=== PATIENT | male | born 1965 | race Caucasian/White ===

== ENCOUNTER → 2019-01-15 09:53 | Outpatient (CLI) | payer OTHER, SELFPAY ==
[2019-01-15 09:31] VITALS: BMI 30.8
[2019-01-15 12:34] LABS: ALB/GLOB Ratio 1.2 RATIO (0.9-2.4); AST(SGOT) 15 U/L (15-37); Alanine Aminotransfer ALT/SGPT 43 U/L (16-61); Albumin, Serum 3.5 g/dL (3.2-5.0); Alkaline Phosphatase 105 U/L (45-117); Anion Gap 5 (5-15); BUN 11 mg/dL (7-18); BUN/Creat Ratio 10.5 RATIO (10-20); Calcium,Total 8.7 mg/dL (8.5-10.1); Chloride 109 mmol/L (98-107); Cholesterol 136 mg/dL (200); Creatinine, Serum 1.05 mg/dL (0.70-1.30); EST Glomerular Filtration Rate 79 mL/min (>60); Est Glom Filt Rate - Afr Amer 96 mL/min (>60); Glucose 97 mg/dL (74-106); High Density Lipoprotein 40 mg/dL; Potassium 3.7 mmol/L (3.5-5.1); Protein, Total 6.5 g/dL (6.4-8.2); Sodium Level 142 mmol/L (136-145); Triglycerides 210 mg/dL; Very Low Density Lipoprotein 42 mg/dL (5-40)
== END ==
PROVIDERS: Family Provider Family Medicine; PCP Family Medicine; Visit Provider Family Medicine
DX: E78.5 Hyperlipidemia, unspecified (principal)
CPT/HCPCS: 36415; 80053; 80061

== ENCOUNTER 2019-06-24 07:29 | Day surgery (SDC) | payer OTHER, SELFPAY ==
[2019-01-15 09:31] VITALS: BMI 30.8
[2019-06-24] VITALS (7 sets, daily range): BP systolic 125–131; BP diastolic 74–91; PULSE 44–57; RESP 15–45; TEMP 36.2; O2SAT 94–99; BMI 30.1
[2019-06-24] MEDS: Lactated Ringers 1,000 ML 100 ML IV (08:00)
--- NOTE | 2019-06-24 08:26 | HP.PCM_ITS ---
History of Present Illness Date of Admission: 06/24/19 The patient is a 53 year old M who presents for screening colonoscopy. Patient denies any abdominal pain or blood in his stool. He has never had a colonoscopy. He denies any family history of colon cancer. Past Medical/Surgical History - Planned Operation Planned Operative Procedure/s: cscope open access Date of Operative Procedure: 05/06/19 Permit Signed: No S.O.S: No Is This Patient Having a Total Joint: No - Previous Hospitalizations/Surgeries HX Hospitalizations: No HX of Surgeries: knee scope right. shoulder rtc right. septoplasty. wisdom teeth Any Problems With Anesthesia: No You/Your Family Experience Fever (Hyperthermia) With Anes: No Cholinesterase deficiency: No - Cardiovascular Hx Chest Pain within Last 2 months: No Hx of Irregular Heartbeat and/or Afib: No Hx Heart Attack: No Hx Congestive Heart Failure: No Hx Rheumatic Fever: No Hx Hypertension: No - . Hx Internal Defibrillator: No Hx Pacemaker: No Hx Cardiac Catheterization: No Hx Cardiac Surgery/Stents/Etc.: No Hx Stress Test: No HX Edema: No Hx Pain in Legs when Walking/Leg Cramps: No - Respiratory Chronic Cough: No HX of Shortness of Breath: No Hoarseness: No Hx Chronic Obstructive Pulmonary Disease (COPD): No Hx Asthma: No Hx Emphysema: No Hx Sleep Apnea: No Hx Oxygen Use at Home: No Hx Respiratory Tract Infection/Cold (presently): No Do You Snore Loudly (louder than talking or can be heard): Yes Do You Often Feel Tired/ Fatigued/ Sleepy Dring Daytime?: No Has Anyone Observed You Stop Breathing During Sleep?: No Result (for STOP score): Negative Hx Smoking: No Smoking Status: Never smoker - Gastrointestinal Hx Gastroesophageal Reflux: No Hx Gastrointestinal Disorders: No Hx Gastrointestinal Bleed: No Hx Ulcer: No Hx Hiatal Hernia: No Difficulty Chewing/Swallowing: Yes - narrow esphogus/had swallowing test Recent Onset of Swallowing Problems: No Special diet followed at home: No Hx Unplanned Weight Loss of 20#: No HX Unplanned Weight Gain of 20#: No - Neurological Hx Seizures: No HX Syncope/Blackout Spells/Unconsciousness: No Hx CVA/Stroke: No Hx Transient Ischemic Attacks (TIA): No Hx Multiple Sclerosis: No Hx Parkinson's Disease: No Hx Head/Neck Injury: No Hx Headaches: Yes - migraines Hx Back Injury/Pain: No Recent Onset of Speech Difficulty: No Restless Legs: No Does patient have nerve stimulator: No Patient instructed to have device shut off: No Rep notified?: No - Blood Disorder Hx Leukemia: No Bleeding Tendencies: No Hx Deep Vein Thrombosis: Yes - dvt after shoulder surgery Hx High Cholesterol: Yes - on med Blood Transmitted Disease: No Hx Hepatitis: No Hx Cirrhosis: No Hx Anemia: No Hx Blood Disorders: No - Genitourinary Hx Renal Disease: No - kidney stone in the past - Musculoskeletal Hx Arthritis: No Hx Rheumatoid Arthritis: No Hx Gout: No Recent Onset of an Orthopedic Problem: No - Endocrine Hx Diabetes: No Thyroid Disease: No Hx Steroid Therapy: No - Psycho/Social Hx Substance Use: No Hx Alcohol Use: No Hx Anxiety: No Hx Depression: No Mental Illness: No Hx Dementia: No - Miscellaneous Hx Cancer: No Recent Exposure to Contagious Disease: No Active MRSA: No Hx of C-Diff: No Any Loose Teeth: No Allergies No Known Allergies Allergy (Unverified 06/24/19 07:51) - Discharge Is Pt Admitted From a [facility]pc, or a Senior Care: No Who Could Help: family After D/C, Where Do you Plan to Go: Return Home - Physical Exam Vitals/I&O's: Vital Signs Temp Pulse Resp BP Pulse Ox 97.1 F L 54 L 15 131/74 H 99 06/24/19 07:52 06/24/19 07:52 06/24/19 07:52 06/24/19 07:52 06/24/19 07:52 Oxygen Delivery Method Room Air Weight: 234 lb 9.149 oz Body Mass Index (BMI) 30.1 General: Alert, Oriented x3 Neck: No JVD Lungs: Normal air movement Cardiovascular: Regular rate, Regular Rhythm Abdomen: Soft, Non Tender, Non-Distended Current Medications Lactated Ringer's () 1,000 mls @ 100 mls/hr IV .Q10H VICTOR MANUEL Last Admin: 06/24/19 08:00 Dose: 100 mls/hr Documented by: Assessment/Plan All Active Problems (Last Reviewed 01/15/19 @ 09:39 by Juan Porter DO) Calculus of distal left ureter (Resolved) 53-year-old male for screening colon cancer 1. I explained endoscopy in detail to the patient. I explained the risks including but not limited to stroke or heart attack with anesthesia, perforation of the GI tract, bleeding, infection. I explained that any of these could necessitate further emergency surgery. The patient understands and all questions were answered sufficiently. The patient wishes to proceed with procedure. Isidro Martin MD Pager: [facility] [address] [place] [address] [address] [place] [address] Office: Surgery Risks - Colonoscopy Risks Include but are not Limited To: Risks include but are not limited to: Bleeding, perforation requiring further surgery, inability to complete colonoscopy requiring barium enema.
--- NOTE | 2019-06-24 08:30 | COLBX_PTH ---
PATIENT: ELADIO ARCHIBALD LOC: EN U#:[id number] AGE/SX: 53/M ROOM: RE06/24/[address]: Dr. Isidro Martin MD : 1965 BED: DIS: 06/24/2019 SPEC #: [id number] RECD: 06/24/19 13:46 STATUS: CHAGO JUVENCIO #: [id number] GERRY: 06/24/19 08:[address]: Isidro Martin DEPT: SURGICAL PATHOLOGY RECD BY: Grant Schmidt ENTERED: 06/24/19 14:16 SP TYPE: COLON BX OTHR DR: Dr. Juan Porter, Tissues: COLON BIOPSY Procedures: Surgery Specimen Level IV HEADER OPERATION: Colonoscopy - open access (MAC) PRE-OP DIAGNOSIS: Screening colonoscopy TISSUE SUBMITTED: Hepatic flexure polyps MICROSCOPIC DIAGNOSIS Hepatic flexure polyps, biopsy: Fragments of tubular adenoma. Hyperplastic polyp. SJ:mando 06/25/19 MICROSCOPIC DESCRIPTION Slides are reviewed. GROSS DESCRIPTION Received in fixative is one container labeled with the patient's name and designated hepatic flexure polyp. The specimen consists of multiple irregular fragments of rm soft tissue that in aggregate measure 2 x 1.2 x 0.3 cm. The entire specimen is submitted in one cassette. / SJ:rg 06/24/19 TC:1 CPT: 88038
--- NOTE | 2019-06-24 08:53 | OP.COLON_ITS ---
Patient Name: Elia Ochoa Procedure Date: 06/24/2019 8:29 AM Date of : 1965 Age: 53 Procedure: Colonoscopy Indications: Screening for colorectal malignant neoplasm Providers: Isidro Martin MD Referring MD: Juan Porter Medicines: Monitored Anesthesia Care Patient Profile: This is a 53 year old male. Refer to note in patient chart for documentation of history and physical. Last Colonoscopy: none. The patient's first colonoscopy is today. Complications: No immediate complications. Estimated blood loss: Minimal. Procedure: Pre-Anesthesia Assessment: - Prior to the procedure, a History and Physical was performed, and patient medications and allergies were reviewed. The patient's tolerance of previous anesthesia was also reviewed. The risks and benefits of the procedure and the sedation options and risks were discussed with the patient. All questions were answered, and informed consent was obtained. Prior Anticoagulants: The patient has taken no previous anticoagulant or antiplatelet agents. After reviewing the risks and benefits, the patient was deemed in satisfactory condition to undergo the procedure. After I obtained informed consent, the scope was passed under direct vision. Throughout the procedure, the patient's blood pressure, pulse, and oxygen saturations were monitored continuously. The colonoscope was introduced through the anus and advanced to the cecum, identified by appendiceal orifice and ileocecal valve. The colonoscopy was performed without difficulty. The patient tolerated the procedure well. The quality of the bowel preparation was good. Scope In: 8:38:23 AM Scope Withdrawal Time 0 hours 6 minutes 19 seconds Scope Out: 8:49:02 AM Total Procedure Duration Time 0 hours 10 minutes 39 seconds Findings: Two polyps were found in the hepatic flexure. The polyps were small in size. These polyps were removed with a hot snare. Resection and retrieval were complete. The exam was otherwise without abnormality on direct and retroflexion views. Impression: - Two small polyps at the hepatic flexure, removed with a hot snare. Resected and retrieved. - The examination was otherwise normal on direct and retroflexion views. Recommendation: - Discharge patient to home. - Resume previous diet. - Continue present medications. - Await pathology results. - Repeat colonoscopy date to be determined after pending pathology results are reviewed for surveillance based on pathology results. Procedure Code(s): --- Professional --- 04791, PT, Colonoscopy, flexible; with removal of tumor(s), polyp(s), or other lesion(s) by snare technique Diagnosis Code(s): --- Professional --- Z12.11, Encounter for screening for malignant neoplasm of colon D12.3, Benign neoplasm of transverse colon (hepatic flexure or splenic flexure) CPT copyright 2017 [employer]. All rights reserved. The codes documented in this report are preliminary and upon parts washer review may be revised to meet current compliance requirements. Isidro Martin MD 06/24/2019 8:52:56 AM This report has been signed electronically. Number of Addenda: 0 Note Initiated On: 06/24/2019 8:29 AM
== END 2019-06-24 09:52 | disposition home or self-care (01) ==
LOC: EN 07:30 → AC 07:33
PROVIDERS: Family Provider Family Medicine; PCP Family Medicine; Referring Provider Family Medicine; Visit Provider Surgery
PROC: 0DJD8ZZ Inspection of Lower Intestinal Tract, Via Natural or Artificial Opening Endoscopic (ICD-10-PCS; CPT 45378; principal; 2019-06-24 08:25)
DX: Z12.11 Encounter for screening for malignant neoplasm of colon (principal); D12.3 Benign neoplasm of transverse colon; E78.00 Pure hypercholesterolemia, unspecified; G43.909 Migraine, unspecified, not intractable, without status migrainosus; Z86.718 Personal history of other venous thrombosis and embolism; Z79.899 Other long term (current) drug therapy
CPT/HCPCS: 45385; 88305; J7120

== ENCOUNTER → 2019-10-22 15:28 | Outpatient (CLI) | payer OTHER, SELFPAY ==
[2019-10-15 15:06] VITALS: BMI 30.1
[2019-10-22 15:30] LABS: Bacteria 0 SEEN /hpf (None Seen); Mucous, Urine 0 SEEN /hpf (<or=2+); Red Blood Cells-Urine 0 SEEN /hpf (0-5); Squamous Epithelial Cells - UA 0 SEEN /hpf (0-5); White Blood Cells 0 SEEN /hpf (0-5)
[2019-10-22 17:20] LABS: Color, Urine Yellow (Yellow); Glucose, Dipstick Normal (Normal); Ketone-Dipstick Negative (Negative); Leukocyte Esterase-Dipstick Negative /ul (Negative); Nitrite-Dipstick Negative (Negative); Occult Blood-Urine Negative /ul (Negative); Protein-Dipstick Negative (Negative); Specific Gravity, Urine 1.025 (1.002-1.030); Urine Bilirubin Dipstick Negative (Negative); Urine Clarity Sl. Cloudy (Clear); Urine Urobilinogen 1 mg/dl (Normal)
== END ==
PROVIDERS: PCP Family Medicine; Referring Provider Family Medicine; Visit Provider Family Medicine
DX: N20.1 Calculus of ureter (principal)
CPT/HCPCS: 81001

== ENCOUNTER → 2019-10-24 15:55 | Outpatient (CLI) | payer OTHER, SELFPAY ==
[2019-10-15 15:06] VITALS: BMI 30.1
== END ==
PROVIDERS: PCP Family Medicine; Referring Provider Nurse Practitioner Family; Visit Provider Nurse Practitioner Family
DX: M79.661 Pain in right lower leg (principal)
CPT/HCPCS: 36415; 85379

== ENCOUNTER → 2019-10-27 10:20 | Outpatient (CLI) | payer OTHER, SELFPAY ==
[2019-10-24 16:41] VITALS: BMI 30.1
--- NOTE | 2019-10-27 10:30 | VDLE_ITS ---
Reason For Study: Elevated D-dimer RIGHT LEFT GSV is normal. CFV is compressible, spontaneous, phasic, CFV is compressible, spontaneous, phasic, competent, and demonstrates normal competent and demonstrates normal augmentation. augmentation. FV is compressible, spontaneous, phasic, competent and demonstrates normal augmentation. POP V is compressible, spontaneous, phasic, competent and demonstrates normal augmentation. T/P Trunk is compressible. RT PerV is compressible. Acute deep vein thrombosis is noted in the right PTV and GastrocV. Procedure Exam performed in department. A preliminary report was called and/or faxed to [facility]. Pt sent home. Interpretation Summary Acute deep vein thrombosis is noted in the right posterior tibial vein. Acute deep vein thrombosis is noted in the right gastrocnemius vein. The remainder of the right lower extremity deep venous system is patent and compressible. Valvular competence appears intact within the proximal deep venous system on the right . The right great saphenous vein appears patent and compressible segmentally. Ordering Physician: Lawrence Aponte Referring Physician: Juan Porter Performed By: Faiza Lopez RVT
== END ==
PROVIDERS: PCP Family Medicine; Referring Provider Nurse Practitioner Family; Visit Provider Nurse Practitioner Family
DX: I82.441 Acute embolism and thrombosis of right tibial vein (principal)
CPT/HCPCS: 93971

== ENCOUNTER → 2019-11-05 10:29 | Outpatient (CLI) | payer OTHER, SELFPAY ==
[2019-11-05 09:55] VITALS: BMI 29.5
[2019-11-05 10:32] LABS: Bacteria 0 SEEN /hpf (None Seen); Squamous Epithelial Cells - UA 0 SEEN /hpf (0-5); White Blood Cells 0 SEEN /hpf (0-5)
[2019-11-05 12:32] LABS: Color, Urine Yellow (Yellow); Glucose, Dipstick Normal (Normal); Ketone-Dipstick Negative (Negative); Leukocyte Esterase-Dipstick Negative /ul (Negative); Nitrite-Dipstick Negative (Negative); Occult Blood-Urine 150 /ul (Negative); Protein-Dipstick 15 mg/dl (Negative); Specific Gravity, Urine 1.025 (1.002-1.030); Urine Bilirubin Dipstick Negative (Negative); Urine Clarity Clear (Clear); Urine Urobilinogen Normal (Normal)
[2019-11-05 12:58] LABS: Mucous, Urine 1+ /hpf (<or=2+); Red Blood Cells-Urine 10-25 SEEN /hpf (0-5)
== END ==
PROVIDERS: PCP Family Medicine; Visit Provider Nurse Practitioner Family
DX: N20.0 Calculus of kidney (principal); R10.9 Unspecified abdominal pain
CPT/HCPCS: 81001; 87086

== ENCOUNTER → 2019-12-25 13:47 | Outpatient (CLI) | payer OTHER, SELFPAY ==
[2019-12-17 10:05] VITALS: BMI 30.1
--- NOTE | 2019-12-25 13:57 | RAD_ITS ---
STUDY: X-RAY - ABDOMEN/PELVIS REASON FOR EXAM: Male, 54 years old. F/U LEFT SIDED KIDNEY STONE IN SEPTEMBER, RIGHT SIDED KIDNEY STONE IN OCTOBER TECHNIQUE: Single AP view of the abdomen / pelvis. COMPARISON: None. FINDINGS: There is a moderate amount of colonic fecal material. The visualized liver, spleen and kidneys are grossly normal in size and morphology. Normal soft tissue structures. Normal visualized osseous structures. RAD/Abdomen Single View IMPRESSION: Moderate amount of fecal material is seen in the colon. Electronically Signed: Moi Barroso, at 14:32 EDT , Service support ,
== END ==
PROVIDERS: PCP Family Medicine; Referring Provider Urology; Visit Provider Urology
DX: N20.1 Calculus of ureter (principal)
CPT/HCPCS: 74018

== ENCOUNTER → 2020-01-21 | Outpatient (CLI) | payer OTHER, SELFPAY ==
[2019-12-17 10:05] VITALS: BMI 30.1
--- NOTE | 2020-01-21 07:50 | VDLE_ITS ---
Reason For Study: F/U DVT RIGHT LEFT GSV is normal. CFV is compressible, spontaneous, phasic, CFV is compressible, spontaneous, phasic, competent, and demonstrates normal competent and demonstrates normal augmentation. augmentation. FV is compressible, spontaneous, phasic, competent and demonstrates normal augmentation. POP V is compressible, spontaneous, phasic, competent and demonstrates normal augmentation. T/P Trunk is compressible. RT PerV is compressible. PTV is now compressible and demonstrates blood flow. Gastrocnemius V is compressible at popliteal junction. Gastrocnemius V is non compressible at the prox calf. Procedure Exam performed in department. The exam was diagnostic. Interpretation Summary Right great saphenous vein appears patent and compressible segmentally. Proximal right calf gastrocnemius vein deep venous thrombosis The right gastrocnemius vein is compressible at the popliteal junction and the posterior tibial vein is now compressible Improvement is noted from the previous examination of October 27, 2019 Ordering Physician: Isidro Martin Referring Physician: Juan Porter Performed By: Sharon Fairchild, GIOVANNY, RVT
== END | disposition home or self-care (01) ==
LOC: CVS 07:50
PROVIDERS: PCP Family Medicine; Referring Provider Surgery; Visit Provider Surgery
DX: I82.409 Acute embolism and thrombosis of unspecified deep veins of unspecified lower extremity (principal)
CPT/HCPCS: 93971

== ENCOUNTER → 2020-04-22 15:02 | Outpatient (CLI) | payer OTHER, SELFPAY ==
[2020-04-22 14:37] VITALS: BMI 30.1
[2020-04-22 17:19] LABS: Homocysteine 6.3 umol/L (3.2-10.7)
== END ==
PROVIDERS: PCP Family Medicine; Referring Provider Family Medicine; Visit Provider Family Medicine
DX: I82.409 Acute embolism and thrombosis of unspecified deep veins of unspecified lower extremity (principal)
CPT/HCPCS: 36415; 81241; 83090; 85300; 85303; 85306

== ENCOUNTER 2020-05-06 05:56 | Day surgery (SDC) | payer OTHER, SELFPAY ==
[2020-04-08 08:06] VITALS: BMI 27.2
--- NOTE | 2020-04-08 08:30 | HP_ITS ---
Intake Vital Signs 04/08/20 BMI 27.2 04/08/20 Height 6 ft 2 in 04/08/20 Weight: 205 lb 04/08/20 BMI 26.3 04/08/20 BP 142/82 H 04/08/20 Blood Pressure Location Rt brachial 04/08/20 Position Sitting 04/08/20 Respiration 16 04/08/20 Pulse 61 04/08/20 Pulse Source Monitor 04/08/20 Temp 97.7 F L 04/08/20 Temp Source Temporal 04/08/20 Pulse Oximetry (%) 99 04/08/20 Oxygen Delivery Method room air Intake Visit Reasons: UPDATE H & P SURGERY IN APR Chief Complaint: recheck hernia/DVT/ discuss surgery Stereo Equipment Installer Required: No Is patient in pain?: No Allergies No Known Allergies Allergy (Verified 04/08/20 08:05) Medications verapamil 240 mg tablet,extended release 240 mg PO QHS 01/11/18 [History Confirmed 04/08/20] atorvastatin 10 mg tablet 10 mg PO QAM #90 tab 11/05/19 [Rx Confirmed 04/08/20] gabapentin 800 mg tablet 800 mg PO .qid tab 11/05/19 [History Confirmed 04/08/20] sumatriptan succinate 50 mg tablet 50 mg PO ONCE PRN 11/05/19 [History Confirmed 04/08/20] apixaban 5 mg tablet 5 mg PO BID #180 tab 01/15/20 [Rx Confirmed 04/08/20] PFSH Medical History Chronic migraine (Chronic) Calculus of distal left ureter (Resolved) Deep venous thrombosis (Chronic) Hyperlipidemia (Chronic) Left inguinal hernia (Acute) Surgical History History of inguinal hernia repair, bilateral (Resolved) History of knee surgery (Resolved) History of shoulder surgery (Resolved) Family History Grandfather Diabetes Father Lung cancer Mother Cancer Social History (Updated 04/08/20 @ 08:[address] Isidro Martin MD) Smoking Status: Never smoker alcohol intake: never substance use type: does not use what type of physical activity do you participate in: none HPI HPI HPI: ELADIO ARCHIBALD, is a 54 M who presents to the office today for HPI HPI Surgical H&P: Yes HPI: ELADIO ARCHIBALD, is a 54 M who presents to the office today for Scheduling of surgery. The patient reports that he would like to schedule surgery for April. He says that his hernia did bother him a lot this past weekend. The patient is seeing his doctor on April 28 to discuss stopping blood thinners. ROS General General: Yes weight change; no appetite or fatigue HEENT HEENT: No difficulty swallowing, eye injury or eye surgery Endo Endocrine: No thyroid disease or diabetes mellitus Skin Skin: No rash or changing moles Musc Musculoskeletal: No back problems, arthritis or rheumatoid arthritis Cardio Cardiovascular: No murmur, pacemaker, heart disease, atrial fibrillation, high blood pressure, heart attack, heart stent, palpitations, shortness of breat with exertion or chest pain Psych Psychiatric: No depression or anxiety Resp Respiratory: No shortness of breath, No sleep apnea, No cough, No COPD, No asthma, No emphysema, No wheezing Gastro Gastrointestinal: No abdominal pain, No nausea or vomiting, No diarrhea, No constipation, No blood in stool, No acid reflux, No hemorrhoids, No ulcers, No gallbladder problem, No black,tarry stools Raymond Hematologic: Yes blood thinners, No blood disorders, Yes blood clots Neuro Neurologic: Yes system reviewed and no additional complaints, except as docu Exam Const General: cooperative Orientation: alert, oriented x3 Resp Effort & Inspection: normal respiratory effort Auscultation: clear to auscultation bilaterally Cardio Rate: regular rate Rhythm: regular rhythm Heart Sounds: no murmurs GI Inspection: non-distended Palpation: soft, hernia indirect inguinal bilaterally, nontender Assessment & Plan Problems 1. Bilateral recurrent inguinal hernia without obstruction or gangrene K40.21 Plan The patient has bilateral recurrent inguinal hernias. I discussed surgery with him once more. I discussed robotic assisted laparoscopic inguinal hernia repair with mesh. I discussed the risks of bleeding, infection, injury to bowel, chronic groin pain. The patient understands the risks and is willing to proceed. The patient is coming off of his blood thinners in the middle of April due to his DVT after being on them for 6 months. If his doctor continues them I would like him to stop them for 2 days prior to surgery. We discussed the current risks associated with COVID-19. While it is understood that there is a community spread of COVID-19, the risk of lawson COVID-19 while at [facility] ([facility]) is very low; however, the risk cannot be completely mitigated because of the community spread of the disease. We discussed in detail the risk of exposure to and/or potential harm posed by the COVID-19 virus with having a surgery/procedure at this time versus the risk of delaying the surgery/procedure. It is not possible to know either the risk of delaying the surgery or procedure or chance of getting an infection with perfect accuracy, but a joint decision was made to proceed at this time with the scheduled surgery/procedure as indicated on the consent form. Patient was notified that we will need to comply with any screening or testing [facility] wishes to perform or that surgery may be delayed for any positive results. Isidro Martin MD Pager: [facility] [address] [place] [address], [address] [place] [address] Office: Coding Level of Care Code Off vis,est,level 3 Diagnoses Bilateral recurrent inguinal hernia without obstruction or gangrene K40.21 ??Obstruction and gangrene presence: without obstruction or gangrene ??Recurrence: recurrent 04/08/20 0832 <Electronically signed by Isidro lepe MD> Date _ Isidro Martin MD I have re-examined the patient. There are no clinical changes since date of exam.
[2020-04-22 14:37] VITALS: BMI 30.1
--- NOTE | 2020-04-29 08:53 | EKG12_ITS ---
Test Reason : PRE OP Blood Pressure : / mmHG Vent. Rate : 052 BPM Atrial Rate : 052 BPM P-R Int : 194 ms QRS Dur : 102 ms QT Int : 460 ms P-R-T Axes : 053 062 042 degrees QTc Int : 427 ms Sinus bradycardia with sinus arrhythmia Otherwise normal ECG Confirmed by EBONI CAMPOS, RONNA ([id number]), editor newspaper MARK GREENE ([id number]) on 05/03/2020 1:21:00 PM Referred By: Isidro Martin Confirmed By:ALEXANDRA LYN MD
[2020-05-06] VITALS (8 sets, daily range): BP systolic 104–117; BP diastolic 60–88; PULSE 47–59; RESP 14–18; TEMP 36–36.7; O2SAT 93–99; BMI 26.1
[2020-05-06] MEDS: Lactated Ringers 1,000 ML 100 ML IV ×2 (06:38→09:34)
[2020-05-06] MEDS: Cefazolin 2 GM in 0.9% Normal Saline 100 ML IV (07:27)
[2020-05-06] MEDS: Bupivacaine Mpf 0.5% 30 ML VIAL (09:05)
--- NOTE | 2020-05-06 09:26 | PCM.OPRPT ---
Problem List (1) Bilateral recurrent inguinal hernia Status: Acute Qualifiers: Obstruction and gangrene presence: without obstruction or gangrene Qualified Code(s): K40.21 - Bilateral inguinal hernia, without obstruction or gangrene, recurrent Report of Operation Date of Procedure: 05/06/20 Pre-Operative Diagnosis: Bilateral recurrent inguinal hernia Post-Operative Diagnosis: Same Surgery/Procedure Performed:: Robotic assisted laparoscopic bilateral recurrent inguinal hernia repair with mesh Description of Procedure: Patient was brought back the operating room and general anesthesia was induced. The abdomen was prepped and draped in the usual sterile fashion. An incision was made superior to the umbilicus and the fascia was elevated and a Veress needle was placed into the abdomen and a drop test was performed. The abdomen was then insufflated 15 mmHg. The needle was removed and a camera port was placed into the abdomen and the abdomen was inspected for injuries and there were none. Next under direct visualization a right lateral and left lateral 8 mm port were placed. The abdomen was inspected the patient had bilateral direct inguinal hernias. Next the robot was docked after patient was placed in steep Trendelenburg position. The right peritoneum in the inguinal region was incised using electrocautery scissors and dissected inferiorly until the hernia sac was reduced and then dissected more posteriorly. Next pro-frame operator mesh was placed into this area and unfolded allowing for good coverage of the hernia. The peritoneum was reapproximated using a running 3-0 V lock suture completely covering the mesh. Next attention was paid to the right side. In a similar fashion the right peritoneum was scored and then dissection was taken down to the hernia sac which was reduced. The mesh was placed into this right inguinal region and unfolded over that hernia. The peritoneum was then reapproximated using a running 3-0V lock suture and a 4-0 Vicryl suture was used to close a small rent in the peritoneum. The peritoneum completely covered the mesh at the end of the procedure. Next the robot was undocked and the air was allowed to desufflate from the abdomen. The skin incisions were anesthetized and closed with interrupted 4-0 Monocryl sutures as well as Steri-Strips and bandages. The scrotum was checked and both testicles were present. Patient was awoken and taken to PACU in stable condition and tolerated the procedure well. Grafts/Implants Used: Pro-frame operator mesh bilaterally - Admit VTE Documentation VTE Mechan Device Prophylaxis: SCD's
--- NOTE | 2020-05-06 09:34 | PCM.DC.HER ---
Discharge Diet: Light diet - advance as tolerated Discharge Activity: Return to Normal Activity, May Not Drive - for 2-3 days or while taking narcotic pain meds., May Shower - with the bandage in place 1-2 days after surgery. Lifting Restrictions: 20 pounds for 4 weeks. Additional Activity Instructions:: Climbing stairs is fine, walking is encouraged. Sitting in bed may be uncomfortable. Sitting up using your lateral muscles (sitting up sideways) is usually more comfortable. Do not drive, work heavy equipment of sign legal documents for 24 hours. If your hernia repair was an ingunial repair, you may have scrotal swelling, an ice pack and/or athletic support can provide more comfort. Pain medications may cause nausea, you should typically eat light foods as you take your pain medications. Pain medications may also cause constipation. If you have difficulty with this, discuss with your doctor. Call your doctor if your incision/area has: Continuous Slow Oozing, Sudden Increased Bleeding, Increased Pain/ Swelling, Increased Redness, Foul Smelling Discharge Call your doctor if you observe: Fever of 101 or Higher Suture Line Care: Avoid Pulling/Pushing, Avoid Pinching/Bending Change Dressing in (Days):: 3 - Leave steri-strips for 1 week. May protect with a guaze bandaid. Cleanse incision/area with: Keep Dressing Clean & Dry Additional Instructions: Start taking daily aspirin tomorrow Allergies/Adverse Reactions: Allergies No Known Allergies Allergy (Verified 05/06/20 06:32) Medications to take at Discharge verapamil 240 mg tablet,extended release 240 mg PO QHS 01/11/18 atorvastatin 10 mg tablet 10 mg PO QAM #90 tab 11/05/19 gabapentin 800 mg tablet 800 mg PO BID tab 11/05/19 sumatriptan succinate 50 mg tablet 50 mg PO ONCE PRN 11/05/19 apixaban 5 mg tablet 5 mg PO BID #60 tab 04/16/20 Ascorbic Acid [Vitamin C] 1,000 mg PO DAILY 04/28/20 Gabapentin 1,600 mg PO QHS 04/28/20 Multivitamin 1 ea PO DAILY 04/28/20 Ubidecarenone [Coq-10] 100 mg PO BID 04/28/20 Oxycodone HCl/Acetaminophen [Percocet 5-325 mg Tablet] 1 - 2 tab PO Q6H PRN PRN 5 Days #15 tablet 05/06/20 The following prescriptions were given: Oxycodone HCl/Acetaminophen [Percocet 5-325 mg Tablet] 1 - 2 tab PO Q6H PRN PRN 5 Days #15 tablet PRN Reason: Pain Score 4-10 Transmission Status: Sent to [facility] Test Results: Test results from this visit will be discussed in further detail at your follow-up appointment, if applicable. Please Follow Up With: Isidro Martin MD When: Please call to schedule 2 week follow up appointment. [phone]
== END 2020-05-06 13:45 | disposition home or self-care (01) ==
LOC: SDC 05:56 → AC 05:57
PROVIDERS: Anesthesiology; PCP Family Medicine; Referring Provider Surgery; Visit Provider Surgery
PROC: (CPT 49651; principal; 2020-05-06 07:10)
DX: K40.21 Bilateral inguinal hernia, without obstruction or gangrene, recurrent (principal); Z11.59 Encounter for screening for other viral diseases; E78.5 Hyperlipidemia, unspecified; G43.909 Migraine, unspecified, not intractable, without status migrainosus; Z79.01 Long term (current) use of anticoagulants; Z79.899 Other long term (current) drug therapy; Z86.718 Personal history of other venous thrombosis and embolism
CPT/HCPCS: 00840; 49651; S2900; 87635; 93005; C9803; J7120; J2405; U0003

== ENCOUNTER → 2020-05-26 13:59 | Outpatient (CLI) | payer OTHER, SELFPAY ==
--- NOTE | 2020-05-26 13:59 | VDLE_ITS ---
Reason For Study: pain RIGHT GSV is normal. CFV is compressible, spontaneous, phasic, competent and demonstrates normal augmentation. FV is compressible, spontaneous, phasic, competent and demonstrates normal augmentation. POP V is compressible, spontaneous, phasic, competent and demonstrates normal augmentation. T/P Trunk is compressible. PTV is compressible. RT PerV is compressible. Procedure This is a venous duplex using B-mode, color flow and spectral Doppler. Exam performed in department. The exam was abbreviated due to the COVID 19 protocol. The exam was diagnostic. A preliminary report was called and/or faxed to Dr. Porter. Interpretation Summary There is no evidence of right lower extremity deep vein thrombosis. Right great saphenous vein appears patent and compressible segmentally. Covid-19 protocol utilized Ordering Physician: Juan Porter Performed By: Toribio Burks RVT and Student
== END ==
PROVIDERS: PCP Family Medicine; Referring Provider Family Medicine; Visit Provider Family Medicine
DX: I82.409 Acute embolism and thrombosis of unspecified deep veins of unspecified lower extremity (principal)
CPT/HCPCS: 93971

== ENCOUNTER → 2020-06-16 06:17 | Outpatient (CLI) | payer OTHER, SELFPAY ==
[2020-04-22 14:37] VITALS: BMI 30.1
[2020-05-06 06:33] VITALS: BMI 26.1
--- NOTE | 2020-06-16 14:10 | NEURO ---
NCS and/or EMG Patient Report Ordering Doctor: Juan Porter DATE OF SERVICE: 06/16/20 Elia Ochoa is a 54-year-old male presents for electrodiagnostic testing of the right lower limb. He reports that in January of this year, he noticed numbness in the right foot after a long drive. Electrodiagnostic findings: Right peroneal nerve demonstrates normal distal latency, amplitude and conduction velocity. Normal right tibial motor response. Sensory responses are within normal limits. On needle EMG, all muscles tested in the right lower limb showed no evidence of denervation with normal motor unit action potentials. Electrodiagnostic assessment: This is a normal electrodiagnostic study of the right lower limb. There is no electrodiagnostic evidence noted for peripheral neuropathy or lumbosacral radiculopathy. If there are any further questions, please do not hesitate to contact me.
== END ==
PROVIDERS: PCP Family Medicine; Referring Provider Family Medicine; Visit Provider Family Medicine
DX: R20.0 Anesthesia of skin (principal)
CPT/HCPCS: 95886; 95910

== ENCOUNTER 2020-10-28 13:22 | Outpatient (RCR) | payer OTHER, SELFPAY ==
[2020-10-28] MEDS: COVID-19 VACC, MRNA(PFIZER)/PF 30 MCG/0.3 ML SYRINGE IM (14:00)
[2020-11-18] MEDS: COVID-19 VACC, MRNA(PFIZER)/PF 30 MCG/0.3 ML SYRINGE IM (15:22)
== END 2021-01-18 23:59 ==
LOC: IMMUN 13:22
PROVIDERS: PCP Family Medicine; Referring Provider Family Medicine; Visit Provider Family Medicine
DX: Z23 Encounter for immunization (principal)
CPT/HCPCS: 0001A; 0002A; 91300

== ENCOUNTER → 2021-03-01 08:57 | Outpatient (CLI) | payer OTHER, SELFPAY ==
[2021-03-01 08:32] VITALS: BMI 26.1
[2021-03-01 12:37] LABS: Absolute Neutrophil Count 2.7 X10^3/uL (2.0-7.7); Basophil# 0.03 X10^3/uL; Basophil% 0.6 % (0-1); Eosinophil# 0.18 X10^3/uL; Eosinophils% 3.5 % (0-5); Hematocrit 49.6 % (40-54); Hemoglobin 16.2 g/dL (13.0-16.5); Lymphocyte % 31.4 % (19-41); Mean Corp Hgb Conc 32.7 g/dL (32-36); Mean Corpuscular Hgb 29.2 pg (27.0-32.0); Mean Corpuscular Volume 89.5 fL (80-94); Mean Platelet Vol. 11.3 fl (6.2-12.0); Monocyte# 0.57 X10^3/uL; Monocyte% 11.2 % (0-10); NRBC Flagged by Analyzer 0 % (0-5); Neutrophil % 52.9 % (47-70); Platelet Count 243 K/mm3 (150-450); RBC Distribution Width CV 12.1 % (11.6-14.6); RBC Distribution Width SD 39.6 fl (35.1-43.9); Red Blood Count 5.54 M/mm3 (4.6-6.2); White Blood Count 5.1 K/mm3 (4.4-11.0)
[2021-03-01 12:59] LABS: ALB/GLOB Ratio 1.5 RATIO (0.9-2.4); AST(SGOT) 16 U/L (15-37); Alanine Aminotransfer ALT/SGPT 38 U/L (16-61); Albumin, Serum 3.8 g/dL (3.2-5.0); Alkaline Phosphatase 86 U/L (45-117); Anion Gap 4 (5-15); BUN 16 mg/dL (7-18); BUN/Creat Ratio 14.3 RATIO (10-20); Calcium,Total 8.9 mg/dL (8.5-10.1); Chloride 108 mmol/L (98-107); Cholesterol 105 mg/dL (200); Creatinine, Serum 1.12 mg/dL (0.70-1.30); EST Glomerular Filtration Rate 73 mL/min (>60); Est Glom Filt Rate - Afr Amer 88 mL/min (>60); Globulin 2.6 g/dL (2.2-4.2); Glucose 100 mg/dL (74-106); High Density Lipoprotein 41 mg/dL; Potassium 3.5 mmol/L (3.5-5.1); Protein, Total 6.4 g/dL (6.4-8.2); Sodium Level 144 mmol/L (136-145); Triglycerides 159 mg/dL; Very Low Density Lipoprotein 32 mg/dL (5-40)
== END ==
PROVIDERS: PCP Family Medicine; Referring Provider Family Medicine; Visit Provider Family Medicine
DX: E78.2 Mixed hyperlipidemia (principal); G57.91 Unspecified mononeuropathy of right lower limb
CPT/HCPCS: 36415; 80053; 80061; 85025

== ENCOUNTER → 2021-06-27 | Outpatient (CLI) | payer OTHER, SELFPAY ==
[2021-06-27 13:46] LABS: Mucous, Urine 0 SEEN /hpf (<or=2+); Red Blood Cells-Urine 0 SEEN /hpf (0-5); White Blood Cells 0 SEEN /hpf (0-5)
[2021-06-27 15:02] LABS: Color, Urine Yellow (Yellow); Glucose, Dipstick Normal (Normal); Ketone-Dipstick Negative (Negative); Leukocyte Esterase-Dipstick Negative /ul (Negative); Nitrite-Dipstick Negative (Negative); Occult Blood-Urine Negative /ul (Negative); Protein-Dipstick 15 mg/dl (Negative); Specific Gravity, Urine 1.025 (1.002-1.030); Urine Bilirubin Dipstick Negative (Negative); Urine Clarity Clear (Clear); Urine Urobilinogen Normal (Normal)
[2021-06-27 15:08] LABS: Bacteria RARE /hpf (None Seen); Squamous Epithelial Cells - UA 0-5 SEEN /hpf (0-5)
== END | disposition home or self-care (01) ==
LOC: LABSPEC 13:44
PROVIDERS: PCP Family Medicine; Referring Provider Physician Assistant; Visit Provider Physician Assistant
DX: R30.0 Dysuria (principal)
CPT/HCPCS: 81001; 87086; 87088

== ENCOUNTER → 2022-06-27 | Outpatient (CLI) | payer OTHER, SELFPAY ==
[2022-06-27 17:16] LABS: ALB/GLOB Ratio 1.3 RATIO (0.9-2.4); AST(SGOT) 13 U/L (15-37); Alanine Aminotransfer ALT/SGPT 36 U/L (16-61); Albumin, Serum 3.6 g/dL (3.2-5.0); Alkaline Phosphatase 89 U/L (45-117); Anion Gap 5 (5-15); BUN 15 mg/dL (7-18); BUN/Creat Ratio 14.9 RATIO (10-20); Calcium,Total 8.6 mg/dL (8.5-10.1); Chloride 107 mmol/L (98-107); Cholesterol 109 mg/dL (200); Creatinine, Serum 1.01 mg/dL (0.70-1.30); EST Glomerular Filtration Rate 82 mL/min (>60); Est Glom Filt Rate - Afr Amer 99 mL/min (>60); Globulin 2.8 g/dL (2.2-4.2); Glucose 105 mg/dL (74-106); High Density Lipoprotein 38 mg/dL; PSA,Total- Diagnostic 0.66 ng/mL (0.0-4.0); Potassium 3.6 mmol/L (3.5-5.1); Protein, Total 6.4 g/dL (6.4-8.2); Sodium Level 143 mmol/L (136-145); Triglycerides 204 mg/dL; Very Low Density Lipoprotein 41 mg/dL (5-40)
== END | disposition home or self-care (01) ==
LOC: BIMLAB 15:02
PROVIDERS: PCP Family Medicine; Referring Provider Family Medicine; Visit Provider Family Medicine
DX: Z00.00 Encounter for general adult medical examination without abnormal findings (principal); E78.2 Mixed hyperlipidemia
CPT/HCPCS: 36415; 80053; 80061; 84153

== ENCOUNTER 2022-07-18 07:21 | Day surgery (SDC) | payer OTHER, SELFPAY ==
[2022-07-18] VITALS (7 sets, daily range): BP systolic 101–123; BP diastolic 62–79; PULSE 43–52; RESP 14–17; TEMP 36.7–36.9; O2SAT 95–97; BMI 27.6
--- NOTE | 2022-07-18 | COLBX_PTH ---
PATIENT: ELADIO ARCHIBALD LOC: EN U#:[id number] AGE/SX: 56/M ROOM: RE07/18/[address]: Dr. Isidro Martin MD : 1965 BED: DIS: 07/18/2022 SPEC #: [id number] RECD: 07/18/22 13:44 STATUS: CHAGO JUVENCIO #: [id number] GERRY: 07/18/22 00:[address]: Isidro Martin DEPT: SURGICAL PATHOLOGY RECD BY: Dangelo Morrison ENTERED: 07/18/22 13:44 SP TYPE: COLON BX OTHR DR: Dr. Juan Porter, DO Tissues: Descending colon Procedures: Surgery Specimen Level IV HEADER OPERATION: Colonoscopy ? open access (MAC), polypectomy PRE-OP DIAGNOSIS: History of colon polyps TISSUE SUBMITTED: Descending polyp MICROSCOPIC DIAGNOSIS Descending colon polyp, polypectomy: Tubular adenoma. SJ:mando 07/19/2022 MICROSCOPIC DESCRIPTION Slides are reviewed. GROSS DESCRIPTION Received in fixative is one container labeled with the patient's name and designated descending polyp. The specimen consists of a rm-pink polyp measuring 0.8 x 0.5 x 0.2 cm. The specimen is totally submitted in one cassette. / SJ:mando 07/18/2022 TC:1 CPT: 78069
[2022-07-18] MEDS: Lactated Ringers 1,000 ML 15 ML IV (07:40)
--- NOTE | 2022-07-18 08:28 | HP.PCM_ITS ---
HPI - General HPI Narrative ELADIO ARCHIBALD, is a 56 M who presents for surveillance colonoscopy. The patient has last colonoscopy 3 years ago. At that time 3 tubular adenomas were identified and removed and he was recommended to have a repeat in 3 years. He denies abdominal pain or blood in the stool. No family history of colon cancer. [facility] Medical History (Updated 07/18/22 @ 08:[address] Isidro Martin MD) Calculus of distal left ureter Chronic migraine Deep venous thrombosis High cholesterol History of colon polyps History of DVT (deep vein thrombosis) History of kidney stones Hyperlipidemia Left inguinal hernia Migraine headache Non-smoker Wears glasses Home Medications verapamil 240 mg tablet,extended release 240 mg PO QHS MIGRAINES 01/11/18 [History Last Taken Unknown] sumatriptan succinate 50 mg tablet 50 mg PO ONCE PRN migraine headache 11/05/19 [History Last Taken Unknown] ascorbic acid (vitamin C) 1,000 mg tablet 1,000 mg PO DAILY 04/28/20 [History Last Taken Unknown] multivitamin 1 ea PO DAILY 04/28/20 [History Last Taken Unknown] gabapentin 800 mg tablet 400 mg PO BID MIGRAINES 03/01/21 [History Last Taken Unknown] atorvastatin 10 mg tablet 10 mg PO QAM #90 tabs 06/28/22 [Rx Last Taken Unknown] Allergy/AdvReac Type Severity Reaction Status Date / Time No Known Allergies Allergy Verified 07/18/22 07:51 Family History Grandfather Diabetes Father Lung cancer Mother Cancer Surgical History History of colonoscopy History of hernia surgery History of inguinal hernia repair, bilateral History of knee surgery History of rhinoplasty History of shoulder surgery Social History Smoking Status: Never smoker alcohol intake: never substance use type: does not use what type of physical activity do you participate in: none Past Medical/Surgical History Planned Operation Planned Operative Procedure/s: COLONOSCOPY S.O.S: No Previous Hospitalizations/Surgeries HX Hospitalizations: No HX of Surgeries: knee scope right shoulder rtc right septoplasty wisdom teeth COLONOSCOPY 06/2019 Any Problems With Anesthesia: No You/Your Family Experience Fever (Hyperthermia) With Anes: No Cholinesterase deficiency: No Cardiovascular Hx Chest Pain within Last 2 months: No Hx of Irregular Heartbeat and/or Afib: No Hx Heart Attack: No Hx Congestive Heart Failure: No Hx Rheumatic Fever: No Hx Hypertension: No Hx Internal Defibrillator: No Hx Pacemaker: No Hx Cardiac Catheterization: No Hx Cardiac Surgery/Stents/Etc.: No Hx Stress Test: No Hx Pain in Legs when Walking/Leg Cramps: No Respiratory Chronic Cough: No HX of Shortness of Breath: No Hoarseness: No Hx Chronic Obstructive Pulmonary Disease (COPD): No Hx Asthma: No Hx Emphysema: No Hx Sleep Apnea: No Hx Respiratory Tract Infection/Cold (presently): No Do You Snore Loudly (louder than talking or can be heard): No Do You Often Feel Tired/ Fatigued/ Sleepy Dring Daytime?: No Has Anyone Observed You Stop Breathing During Sleep?: No Result (for STOP score): Negative Hx Smoking: No Smoking Status: Never smoker Gastrointestinal Hx Gastroesophageal Reflux: No Hx Gastrointestinal Disorders: No Hx Gastrointestinal Bleed: No Hx Ulcer: No Hx Hiatal Hernia: No Difficulty Chewing/Swallowing: Yes (narrow esphogus/had swallowing test) Special diet followed at home: No Hx Unplanned Weight Loss of 20#: No HX Unplanned Weight Gain of 20#: No Neurological Hx Seizures: No HX Syncope/Blackout Spells/Unconsciousness: No Hx Transient Ischemic Attacks (TIA): No Hx Multiple Sclerosis: No Hx Parkinson's Disease: No Hx Head/Neck Injury: No Hx Headaches: Yes (migraines) Hx Back Injury/Pain: No Recent Onset of Speech Difficulty: No Restless Legs: No Does patient have nerve stimulator: No Blood Disorder Hx Leukemia: No Bleeding Tendencies: No Hx Deep Vein Thrombosis: Yes (dvt after shoulder surgery) Hx High Cholesterol: Yes (on med) Blood Transmitted Disease: No Hx Hepatitis: No Hx Cirrhosis: No Hx Anemia: No Hx Blood Disorders: No Genitourinary Hx Renal Disease: No (kidney stone in the past) Musculoskeletal Hx Arthritis: No Hx Rheumatoid Arthritis: No Hx Gout: No Recent Onset of an Orthopedic Problem: No Endocrine Hx Diabetes: No Thyroid Disease: No Hx Steroid Therapy: No Psycho/Social Hx Substance Use: No Hx Alcohol Use: No Hx Anxiety: No Hx Depression: No Mental Illness: No Hx Dementia: No Miscellaneous Hx Cancer: No Recent Exposure to Contagious Disease: No Hx of C-Diff: No Any Loose Teeth: No Allergies No Known Allergies Allergy (Verified 07/18/22 07:51) Discharge Is Pt Admitted From a Penitentiary, or a Care Home: No Who Could Help: After D/C, Where Do you Plan to Go: Return Home Vital Signs Vital Signs Vital Signs: 07/18/22 07:51 07/18/22 07:51 Temperature 98.1 F Temperature Source Temporal Pulse Rate 52 L Respiratory Rate 17 Respiratory Pattern Normal Blood Pressure 123/62 H Blood Pressure Mean 82 Blood Pressure Source Monitor Blood Pressure Position Semi-Fowlers Blood Pressure Location Left Arm Pulse Ox 96 Oxygen Delivery Method Room Air Weight Weight: 209 lb 7.026 oz Body Mass Index (BMI) 27.6 Physical Exam Const alert and oriented x3 HEENT normocephalic Eyes PERRL Resp normal respiratory effort and normal air movement Cardio regular rate and regular rhythm GI soft to palpation, non-tender and non-distended Extremity normal to inspection Assessment & Plan Assessment/Plan (1) History of colon polyps: PLAN: Patient has a history of tubular adenoma x3 on his last colonoscopy. He is here for surveillance colonoscopy. I explained endoscopy in detail to the patient. I explained the risks including but not limited to stroke or heart attack with anesthesia, perforation of the GI tract, bleeding, infection. I explained that any of these could necessitate further emergency surgery. The patient understands and all questions were answered sufficiently. The patient wishes to proceed with procedure. Isidro Martin MD Pager: [facility] [address] [place] [address], [address] [place] [address] Office: Surgery Risks - Colonoscopy Risks Include but are not Limited To: Risks include but are not limited to: Bleeding, perforation requiring further surgery, inability to complete colonoscopy requiring barium enema.
--- NOTE | 2022-07-18 08:50 | OP.COLON_ITS ---
Patient Name: Elia Ochoa Procedure Date: 07/18/2022 8:34 AM Date of : 1965 Age: 56 Procedure: Colonoscopy Indications: High risk colon cancer surveillance: Personal history of colonic polyps Providers: Isidro Martin MD Referring MD: Juan Porter Medicines: Monitored Anesthesia Care Patient Profile: This is a 56 year old male. Refer to note in patient chart for documentation of history and physical. Last Colonoscopy: 3 years ago. Complications: No immediate complications. Procedure: Pre-Anesthesia Assessment: - Prior to the procedure, a History and Physical was performed, and patient medications and allergies were reviewed. The patient's tolerance of previous anesthesia was also reviewed. The risks and benefits of the procedure and the sedation options and risks were discussed with the patient. All questions were answered, and informed consent was obtained. Prior Anticoagulants: The patient has taken no previous anticoagulant or antiplatelet agents. After reviewing the risks and benefits, the patient was deemed in satisfactory condition to undergo the procedure. After I obtained informed consent, the scope was passed under direct vision. Throughout the procedure, the patient's blood pressure, pulse, and oxygen saturations were monitored continuously. The Colonoscope was introduced through the anus and advanced to the cecum, identified by appendiceal orifice and ileocecal valve. The colonoscopy was performed without difficulty. The patient tolerated the procedure well. The quality of the bowel preparation was good. Scope In: 8:39:59 AM Scope Withdrawal Time 0 hours 5 minutes 46 seconds Scope Out: 8:47:17 AM Total Procedure Duration Time 0 hours 7 minutes 18 seconds Findings: A small polyp was found in the descending colon. The polyp was removed with a hot snare. Resection and retrieval were complete. The exam was otherwise without abnormality on direct and retroflexion views. Impression: - One small polyp in the descending colon, removed with a hot snare. Resected and retrieved. - The examination was otherwise normal on direct and retroflexion views. Recommendation: - Discharge patient to home. - Resume previous diet. - Continue present medications. - Await pathology results. - Repeat colonoscopy in 5 years for surveillance. Procedure Code(s): --- Professional --- 40889, Colonoscopy, flexible; with removal of tumor(s), polyp(s), or other lesion(s) by snare technique Diagnosis Code(s): --- Professional --- Z86.010, Personal history of colonic polyps D12.4, Benign neoplasm of descending colon CPT copyright 2017 [employer]. All rights reserved. The codes documented in this report are preliminary and upon rhythmic gymnastics coach review may be revised to meet current compliance requirements. Isidro Martin MD 07/18/2022 8:49:55 AM This report has been signed electronically. Number of Addenda: 0 Note Initiated On: 07/18/2022 8:34 AM
--- NOTE | 2022-07-18 08:51 | OP.CCLET_ITS ---
07/18/2022 Juan Porter Re : Colonoscopy procedure for Elia Ochoa Dear Dr. Porter This procedure was performed on Monday, July 18, 2022. My impressions and recommendations are as follows: Impressions : - One small polyp in the descending colon, removed with a hot snare. Resected and retrieved. - The examination was otherwise normal on direct and retroflexion views. Recommendations : - Discharge patient to home. - Resume previous diet. - Continue present medications. - Await pathology results. - Repeat colonoscopy in 5 years for surveillance. My findings are described in the full procedure note, which is enclosed. If I can be of further assistance, please feel free to contact me at Doctor phone number(s): , Work: . Sincerely, Isidro Martin MD 07/18/2022 8:49:55 AM This report has been signed electronically.
== END 2022-07-18 09:38 | disposition home or self-care (01) ==
LOC: EN 07:21 → AC 07:23
PROVIDERS: PCP Family Medicine; Referring Provider Family Medicine; Visit Provider Surgery
PROC: 0DJD8ZZ Inspection of Lower Intestinal Tract, Via Natural or Artificial Opening Endoscopic (ICD-10-PCS; CPT 45378; principal; 2022-07-18 08:25)
DX: Z12.11 Encounter for screening for malignant neoplasm of colon (principal); D12.4 Benign neoplasm of descending colon; Z86.010 Personal history of colon polyps; G43.709 Chronic migraine without aura, not intractable, without status migrainosus; E78.00 Pure hypercholesterolemia, unspecified
CPT/HCPCS: 45385; 88305; J7120; J2405

== ENCOUNTER → 2023-06-14 | Outpatient (CLI) | payer OTHER, SELFPAY ==
[2023-06-14 16:40] LABS: Absolute Lymphocyte Count 2.46 X10^3/uL (0.83-4.51); Absolute Neutrophil Count 3.3 X10^3/uL (2.0-7.7); Basophil# 0.05 X10^3/uL; Basophil% 0.7 % (0-1); Eosinophil# 0.35 X10^3/uL; Eosinophils% 5.1 % (0-5); Hematocrit 50.1 % (40-54); Hemoglobin 16.4 g/dL (13.0-16.5); Lymphocyte # 2.46 X10^3/ul (0.83-4.51); Lymphocyte % 35.5 % (19-41); Mean Corp Hgb Conc 32.7 g/dL (32-36); Mean Corpuscular Hgb 29.1 pg (27.0-32.0); Mean Corpuscular Volume 88.8 fL (80-94); Mean Platelet Vol. 11.1 fl (6.2-12.0); Monocyte# 0.78 X10^3/uL; Monocyte% 11.3 % (0-10); NRBC Flagged by Analyzer 0 % (0-5); Neutrophil # 3.25 X10^3/uL (2.7-7.7); Neutrophil % 46.8 % (47-70); Platelet Count 249 K/mm3 (150-450); RBC Distribution Width CV 12.3 % (11.6-14.6); RBC Distribution Width SD 39.9 fl (35.1-43.9); Red Blood Count 5.64 M/mm3 (4.6-6.2); White Blood Count 6.9 K/mm3 (4.4-11.0)
[2023-06-14 17:22] LABS: ALB/GLOB Ratio 1.4 RATIO (0.9-2.4); AST(SGOT) 17 U/L (15-37); Alanine Aminotransfer ALT/SGPT 52 U/L (16-61); Albumin, Serum 3.7 g/dL (3.2-5.0); Alkaline Phosphatase 101 U/L (45-117); Anion Gap 5 (5-15); BUN 14 mg/dL (7-18); BUN/Creat Ratio 13.9 RATIO (10-20); Calcium,Total 8.6 mg/dL (8.5-10.1); Chloride 109 mmol/L (98-107); Creatinine, Serum 1.01 mg/dL (0.70-1.30); EST Glomerular Filtration Rate 81 mL/min (>60); Est Glom Filt Rate - Afr Amer 98 mL/min (>60); Globulin 2.7 g/dL (2.2-4.2); Glucose 123 mg/dL (74-106); PSA,Total- Diagnostic 0.81 ng/mL (0.0-4.0); Potassium 3.6 mmol/L (3.5-5.1); Protein, Total 6.4 g/dL (6.4-8.2); Sodium Level 143 mmol/L (136-145)
== END | disposition home or self-care (01) ==
LOC: BIMLAB 15:57
PROVIDERS: PCP Family Medicine; Visit Provider Family Medicine
DX: Z00.00 Encounter for general adult medical examination without abnormal findings (principal); E78.5 Hyperlipidemia, unspecified
CPT/HCPCS: 36415; 80053; 84153; 85025

== ENCOUNTER → 2024-06-11 | Outpatient (CLI) | payer OTHER, SELFPAY ==
[2024-06-11 16:51] LABS: Absolute Lymphocyte Count 2.14 X10^3/uL (0.83-4.51); Absolute Neutrophil Count 4.3 X10^3/uL (2.0-7.7); Basophil# 0.06 X10^3/uL; Basophil% 0.8 % (0-1); Eosinophils% 2.7 % (0-5); Hematocrit 51.3 % (40-54); Hemoglobin 16.4 g/dL (13.0-16.5); Lymphocyte # 2.14 X10^3/ul (0.83-4.51); Lymphocyte % 28.8 % (19-41); Mean Corpuscular Hgb 29.1 pg (27.0-32.0); Mean Corpuscular Volume 91.1 fL (80-94); Monocyte% 9.4 % (0-10); NRBC Flagged by Analyzer 0 % (0-5); Neutrophil # 4.29 X10^3/uL (2.7-7.7); Neutrophil % 57.8 % (47-70); Platelet Count 230 K/mm3 (150-450); RBC Distribution Width CV 12.5 % (11.6-14.6); RBC Distribution Width SD 41.1 fl (35.1-43.9); Red Blood Count 5.63 M/mm3 (4.6-6.2); White Blood Count 7.4 K/mm3 (4.4-11.0)
[2024-06-11 17:39] LABS: ALB/GLOB Ratio 1.3 RATIO (0.9-2.4); AST(SGOT) 16 U/L (15-37); Alanine Aminotransfer ALT/SGPT 41 U/L (16-61); Albumin, Serum 3.7 g/dL (3.2-5.0); Alkaline Phosphatase 108 U/L (45-117); Anion Gap 3 (5-15); BUN 15 mg/dL (7-18); BUN/Creat Ratio 14.3 RATIO (10-20); Calcium,Total 8.8 mg/dL (8.5-10.1); Chloride 108 mmol/L (98-107); Cholesterol 124 mg/dL (200); Creatinine, Serum 1.05 mg/dL (0.70-1.30); EST Glomerular Filtration Rate 77 mL/min (>60); Est Glom Filt Rate - Afr Amer 94 mL/min (>60); Globulin 2.8 g/dL (2.2-4.2); Glucose 115 mg/dL (74-106); High Density Lipoprotein 52 mg/dL; PSA,Total- Diagnostic 0.66 ng/mL (0.0-4.0); Potassium 3.6 mmol/L (3.5-5.1); Protein, Total 6.5 g/dL (6.4-8.2); Sodium Level 141 mmol/L (136-145); Triglycerides 171 mg/dL; Very Low Density Lipoprotein 34 mg/dL (5-40)
== END | disposition home or self-care (01) ==
LOC: BIMLAB 16:03
PROVIDERS: PCP Family Medicine; Referring Provider Family Medicine; Visit Provider Family Medicine
DX: R35.0 Frequency of micturition (principal); Z86.0100 Personal history of colon polyps, unspecified; E78.2 Mixed hyperlipidemia
CPT/HCPCS: 36415; 80053; 80061; 84153; 85025

== ENCOUNTER 2024-07-22 08:21 | Day surgery (SDC) | payer OTHER, SELFPAY ==
[2024-07-22] VITALS (7 sets, daily range): BP systolic 107–139; BP diastolic 50–80; PULSE 53–57; RESP 16; TEMP 36.5–36.8; O2SAT 93–98; BMI 30.2
--- NOTE | 2024-07-22 08:33 | PCM.PRE.AN2 ---
ASA Classification* ASA Classification ASA Classification: 3 Assessment & Plan Anesthesia* Anesthesia Assessment Anesthesia Assessment: Discussed sedation and/or anesthesia options, risks, benefits, and alternatives with patient/parents/legal guardian/POA. Questions invited. The patient/parents/legal guardian/POA seems to understand and agrees to proceed with anesthesia plan. Reviewed the physical assessment, medical history, allergy history and patient home medications list prior to surgery/procedure/anesthetic and documented any changes. Performed airway and anesthesia risk assessments. Anesthesia Type Anesthesia Type: MAC Anesthesia Focused Assessment* Airway Assessment Mouth opens: >3 cm Mallampati Score: II Focused Labs Anesthesia Preop lab: CBC WBC 7.4 K/mm3 (4.4-11.0) 06/11/24 16:03 RBC 5.63 M/mm3 (4.6-6.2) 06/11/24 16:03 Hgb 16.4 g/dL (13.0-16.5) 06/11/24 16:03 Hct 51.3 % (40-54) 06/11/24 16:03 Plt Count 230 K/mm3 (150-450) 06/11/24 16:03 CHEMISTRY Potassium 3.6 mmol/L (3.5-5.1) 06/11/24 16:03 Sodium 141 mmol/L (136-145) 06/11/24 16:03 BUN 15 mg/dL (7-18) 06/11/24 16:03 Creatinine 1.05 mg/dL (0.70-1.30) 06/11/24 16:03 Glucose 115 mg/dL (74-106) H 06/11/24 16:03 COAG Pre-Assessment Diagnosis/Proposed Procedure Planned Operative Procedure(s): EGD Anesthesia History Anesthesia History - dynamotor repairer: Anesthesia History - dynamotor repairer Hx Hospitalization No 07/17/24 12:50 Any Problems With Anesthesia No 07/17/24 12:50 Cholinesterase deficiency No 07/17/24 12:50 You/Your Family Experience No 07/17/24 12:50 fever (hyperthermia) with Relationship Recent Exposure to Contagious No 07/18/22 08:29 Disease Does patient have nerve No 07/17/24 12:50 stimulator Patient instructed to have device shut off --Does patient have Pacemaker or ICD? When Was Last Pacemaker Check QUESTION #4 FULL TEXT: You/Your Family Experience fever (hyperthermia) with Anesthesia Last Oral Intake Last Oral intake: Last Oral Intake NPO since Meds taken in AM with sips of water? Meds patient instructed to take am of surgery PONV PONV - dynamotor repairer: PONV - dynamotor repairer Female No 07/17/24 12:50 HX of Motion Sickness No 07/17/24 12:50 HX of N/V After Surgery No 07/17/24 12:50 Non-Smoker Yes 07/17/24 12:50 Duration of Surgery greater No 07/17/24 12:50 than 60 minutes Number of Risk Factors 1 07/17/24 12:50 PONV Score Low Risk 07/17/24 12:50 Height & Weight Height & Weight: Anesthesia: Height & Weight Height 6 ft 1 in 06/18/24 13:12 Respiratory Assessment Respiratory Assessment - dynamotor repairer: Respiratory Tract Infection Hx - dynamotor repairer Hx Respiratory Tract Infection No 07/17/24 12:50 STOP Sleep Apnea STOP Sleep Apnea - dynamotor repairer: STOP Sleep Apnea - dynamotor repairer Hx Hypertension No 07/17/24 12:50 Hx Sleep Apnea No 07/17/24 12:50 CPAP BIPAP Do you snore loudly (louder No 07/17/24 12:50 than talking or can be heard Do you often feel tired/ No 07/17/24 12:50 fatigued/ sleepy during daytime? Has anyone observed you stop No 07/17/24 12:50 breathing during sleep? STOP Results Negative 07/17/24 12:50 QUESTION #5 FULL TEXT : Do you snore loudly (louder than talking or can be heard through closed doors)? Tobacco Use History Tobacco Use History - dynamotor repairer: Tobacco Use History - dynamotor repairer Tobacco Use Smoking Status Never smoker 07/17/24 12:50 Hx Tobacco Use No 07/17/24 12:50 Years Smoking Packs Smoked per Day Smoking Cessation Date was within the last 15 years Hx Smoking Cessation Date Hx Smoking Cessation Counseling Hematologic Medial History Hematologic Hx - dynamotor repairer: Hematologic Medical Hx - technical documentation specialist Hx of Blood Transfusion No 07/17/24 12:50 Hx of Transfusion in last 3 No 07/17/24 12:50 Months Date of Last Transfusion (if within last 3 months) Ever experience any problems No 07/17/24 12:50 with transfusion(s)? Specify any problems Hx of Preganancy in last 3 N/A 07/17/24 12:50 Months Nurse Filling Out Transfusion [id number] 07/17/24 12:50 & Questions: Date: 07/17/24 07/17/24 12:50 Time: 12:53 07/17/24 12:50 Patient unable to answer at this time (ie. confused, unrespo /Reproduction History /Reproductive History - dynamotor repairer: /Reproductive Hx- dynamotor repairer Hx Now Gestational Age (in weeks): EDC: Hx Hx Para Hx Section SAB PFSH Medical History Right shoulder pain Arm paresthesia, right Wears glasses History of kidney stones History of DVT (deep vein thrombosis) High cholesterol Migraine headache Non-smoker History of colon polyps Left inguinal hernia Chronic migraine Calculus of distal left ureter Deep venous thrombosis Hyperlipidemia Home Medications ?Medication ?Instructions ?Recorded ?Last Taken ?Type verapamil 240 mg tablet,extended 240 mg PO QHS MIGRAINES 01/11/18 Unknown History release sumatriptan succinate 50 mg tablet 50 mg PO ONCE PRN migraine headache 11/05/19 Unknown History ascorbic acid (vitamin C) 1,000 mg 1,000 mg PO DAILY 04/28/20 Unknown History tablet multivitamin 1 ea PO DAILY 04/28/20 Unknown History atorvastatin 10 mg tablet 10 mg PO QAM #90 TABLETS 06/11/24 Unknown Rx gabapentin 600 mg tablet 600 mg PO BID For Prevention of 07/17/24 Unknown History migrains Allergy/AdvReac Type Severity Reaction Status Date / Time No Known Allergies Allergy Verified 07/17/24 12:46 Family History Grandfather Diabetes Father Lung cancer Mother Cancer Surgical History History of hernia surgery History of rhinoplasty History of colonoscopy History of shoulder surgery History of knee surgery History of inguinal hernia repair, bilateral Social History Smoking Status: Never smoker alcohol intake: never substance use type: does not use what type of physical activity do you participate in: none Review of Systems (Anesthesia) ROS Narrative System reviewed and no additional complaints, except as documented.
--- NOTE | 2024-07-22 09:09 | PCM.HP.BLA ---
History and Physical Date of Admission: 07/22/24 Intake Vital Signs 06/11/2415:43 06/18/2413:12 Height 6 ft 1 in 6 ft 1 in Weight: 228 lb 228 lb BMI 30.0 30.0 BP 114/76 143/76 H Blood Pressure Location Lt brachial Rt brachial Position Sitting Respiration 17 16 Pulse 48 L Pulse Source Monitor Temp 97.0 F L Temp Source Temporal Pulse Oximetry (%) 97 Oxygen Delivery Method room air Intake Visit Reasons: DIFFICULTY SWALLOWING Chief Complaint: dysphagia Technology Intern Required: No Is patient in pain?: No Allergies No Known Allergies Allergy (Verified 06/18/24 13:12) Medications ?Medication ?Instructions ?Recorded ?Confirmed ?Type verapamil 240 mg tablet,extended 240 mg PO QHS MIGRAINES 01/11/18 06/18/24 History release sumatriptan succinate 50 mg tablet 50 mg PO ONCE PRN migraine headache 11/05/19 06/18/24 History ascorbic acid (vitamin C) 1,000 mg 1,000 mg PO DAILY 04/28/20 06/18/24 History tablet multivitamin 1 ea PO DAILY 04/28/20 06/18/24 History cyclobenzaprine 10 mg tablet 5 - 10 mg (0.5 - 1 x 10 mg) PO TID 01/03/23 06/18/24 Rx PRN muscle spasm #30 tabs atorvastatin 10 mg tablet 10 mg PO QAM #90 TABLETS 06/11/24 06/18/24 Rx gabapentin 800 mg tablet 600 mg PO BID MIGRAINES 06/11/24 06/18/24 History Have you fallen in the past year?: No PFSH Medical History Right shoulder pain Arm paresthesia, right Wears glasses History of kidney stones History of DVT (deep vein thrombosis) High cholesterol Migraine headache Non-smoker History of colon polyps Left inguinal hernia Chronic migraine Calculus of distal left ureter Deep venous thrombosis Hyperlipidemia Surgical History History of hernia surgery History of rhinoplasty History of colonoscopy History of shoulder surgery History of knee surgery History of inguinal hernia repair, bilateral Family History Grandfather DiabetesFather Lung cancerMother Cancer Social History (Reviewed 06/18/24 @ 13:13 by Charo Zavala Smoking Status: Never smoker alcohol intake: never substance use type: does not use what type of physical activity do you participate in: none HPI HPI HPI: Patient is a 58-year-old male here for dysphagia. He does have occasional vomiting of He reports that he is having difficulty getting meats down his lower esophagus. He says that occasionally they get stuck and takes a while to get down. food contents. He has never had an EGD with dilation. He reports no GERD symptoms. ROS General General: Yes weight change and fatigue; No appetite, colon cancer, breast cancer or weakness HEENT HEENT: Yes difficulty swallowing; No eye injury, eye surgery, swollen glands or hoarseness Endo Endocrine: No thyroid disease, diabetes mellitus, thyroid cancer, Hair loss, heat intolerance or cold intolerance Skin Skin: No rash or changing moles Breast Breast: No left breast lump, right breast lump, nipple discharge, breast pain, abnormal mammogram, abnormal US or breast enlargement Musc Musculoskeletal: No back problems, arthritis, rheumatoid arthritis, gout or joint pain Cardio Cardiovascular: No murmur, pacemaker, heart disease, atrial fibrillation, high blood pressure, heart attack, heart stent, palpitations, shortness of breat with exertion or chest pain Psych Psychiatric: No depression, anxiety or hearing voices Resp Respiratory: No shortness of breath, No sleep apnea, No cough, No COPD, No asthma, No emphysema and No wheezing Gastro Gastrointestinal: No abdominal pain, No nausea or vomiting, No diarrhea, No constipation, No blood in stool, No acid reflux, No hemorrhoids, No ulcers, No gallbladder problem and No black,tarry stools Raymond Hematologic: No blood thinners, No blood disorders, No bleeding, No anemia and Yes blood clots Neuro Neurologic: No system reviewed and no additional complaints, except as documented, No as per HPI, No abnormal gait, No abnormal hearing, No abnormal movements, No abnormal speech, No behavioral changes, No burning sensations, No confusion, No convulsions, No disequilibrium, No dizziness, No localized weakness, No frequent falls, No headache(s), No lack of coordination, No loss of vision, No memory loss, Yes numbness, No other visual disturbances, No radicular pain, No restless legs, No sensory deficit, No syncope, Yes tingling, No tremor(s), No weakness and No other Exam Const General: cooperative Orientation: alert and oriented x3 HENMT Head: normal to inspection Neck Neck: normal visual inspection and full ROM Chest Chest palpation & inspection: normal inspection of the chest Resp Effort & Inspection: normal respiratory effort Auscultation: clear to auscultation bilaterally Cardio Rate: regular rate Rhythm: regular rhythm GI Inspection: non-distended Palpation: soft and nontender Skin General: no rashes or lesions noted Neuro General: patient alert and patient oriented x3 Extrem General: full ROM Psych Appearance: grossly normal Mental Status: mental status grossly normal Assessment and Plan Assessment and Plan (1) Swallowing difficulty: Status: Acute Qualifiers: Dysphagia type: esophageal phase Qualified Code(s): R13.19 - Other dysphagia Plan: Patient feels like food is getting stuck in his chest. Especially meats. He says has been going on for 1 to 2 years. I discussed EGD with possible dilation in detail with the patient. I also discussed the possibility of a mass and discussed biopsies. I explained endoscopy in detail to the patient. I explained the risks including but not limited to stroke or heart attack with anesthesia, perforation of the GI tract, bleeding, infection. I explained that any of these could necessitate further emergency surgery. The patient understands and all questions were answered sufficiently. The patient wishes to proceed with procedure. Isidro Martin MD Pager: [facility] [address] [place] [address], [address] [place] [phone] Office: I have examined the patient and the H&P has been reviewed. There are no clinical changes since date of exam.
--- NOTE | 2024-07-22 09:30 | EGD_PTH ---
PATIENT: ELADIO ARCHIBALD LOC: EN U#:[id number] AGE/SX: 58/M ROOM: RE07/22/[address]: Dr. Isidro Martin MD : 1965 BED: DIS: 07/22/2024 SPEC #: [id number] RECD: 07/22/24 11:14 STATUS: CHAGO RENina #: [id number] GERRY: 07/22/24 09:[address]: Isidro Martin DEPT: SURGICAL PATHOLOGY RECD BY: Katie Schultz ENTERED: 07/22/24 12:10 SP TYPE: EGD BIOPSY OT DR: Dr. Juan Porter, DO Tissues: Esophagus, NOS Procedures: Surgery Specimen Level IV HEADER OPERATION: EGD with biopsy PRE-OP DIAGNOSIS: Swallowing difficulty TISSUE SUBMITTED: Esophageal biopsy MICROSCOPIC DIAGNOSIS Esophageal biopsy: Fragments of squamous epithelium with changes suspicious for eosinophilic esophagitis. See lewis. 07/23/2024 COMMENT Increased number of eosinophils (up to 12 per high power field) are noted, suspicious for eosinophilic esophagitis. Correlation with clinical, endoscopic findings and appropriate follow up are necessary. MICROSCOPIC DESCRIPTION Slides are reviewed. GROSS DESCRIPTION Received in fixative is one container labeled with the patient's name and designated Esophageal biopsy. The specimen consists of multiple irregular fragments of light rm soft tissue that in aggregate measure 1.0 x 0.6 x 0.1 cm. The specimen is totally submitted in one cassette. 07/22/2024 TC:3 CPT:76078
--- NOTE | 2024-07-22 09:43 | OP.EGD_ITS ---
Patient Name: Elia Ochoa Procedure Date: 07/22/2024 9:18 AM Date of : 1965 Age: 58 Procedure: Upper GI endoscopy Indications: Dysphagia Providers: Isidro Martin MD Referring MD: Juan Porter Medicines: Propofol per Anesthesia Patient Profile: This is a 58 year old male. Refer to note in patient chart for documentation of history and physical. Complications: No immediate complications. Estimated blood loss: Minimal. Procedure: Pre-Anesthesia Assessment: - Prior to the procedure, a History and Physical was performed, and patient medications and allergies were reviewed. The patient's tolerance of previous anesthesia was also reviewed. The risks and benefits of the procedure and the sedation options and risks were discussed with the patient. All questions were answered, and informed consent was obtained. Prior Anticoagulants: The patient has taken no anticoagulant or antiplatelet agents. After reviewing the risks and benefits, the patient was deemed in satisfactory condition to undergo the procedure. After obtaining informed consent, the endoscope was passed under direct vision. Throughout the procedure, the patient's blood pressure, pulse, and oxygen saturations were monitored continuously. The Endoscope was introduced through the mouth, and advanced to the third part of duodenum. The upper GI endoscopy was accomplished without difficulty. The patient tolerated the procedure well. Scope In: 9:25:58 AM Scope Out: 9:30:07 AM Total Procedure Duration Time 0 hours 4 minutes 9 seconds Findings: The esophagus was normal. The stomach was normal. The examined duodenum was normal. Biopsies were obtained from the proximal and distal esophagus with cold forceps for histology of suspected eosinophilic esophagitis. Impression: - Normal esophagus. - Normal stomach. - Normal examined duodenum. - Biopsies were taken with a cold forceps for evaluation of eosinophilic esophagitis. Recommendation: - Discharge patient to home. - Resume previous diet. - Continue present medications. - Await pathology results. - Use Prilosec (omeprazole) 20 mg PO daily for 6 weeks. Procedure Code(s): --- Professional --- 25592, Esophagogastroduodenoscopy, flexible, transoral; with biopsy, single or multiple Diagnosis Code(s): --- Professional --- R13.10, Dysphagia, unspecified CPT copyright 2021 [employer]. All rights reserved. The codes documented in this report are preliminary and upon mangle operator garments review may be revised to meet current compliance requirements. Isidro Martin MD 07/22/2024 9:42:43 AM This report has been signed electronically. Number of Addenda: 0 Note Initiated On: 07/22/2024 9:18 AM
--- NOTE | 2024-07-22 09:43 | OP.CCLET_ITS ---
07/22/2024 Juan Porter Re : Upper GI endoscopy procedure for Elia Ochoa Dear Dr. Porter This procedure was performed on Monday, July 22, 2024. My impressions and recommendations are as follows: Impressions : - Normal esophagus. - Normal stomach. - Normal examined duodenum. - Biopsies were taken with a cold forceps for evaluation of eosinophilic esophagitis. Recommendations : - Discharge patient to home. - Resume previous diet. - Continue present medications. - Await pathology results. - Use Prilosec (omeprazole) 20 mg PO daily for 6 weeks. My findings are described in the full procedure note, which is enclosed. If I can be of further assistance, please feel free to contact me at Doctor phone number(s): , Work: . Sincerely, Isidro Martin MD 07/22/2024 9:42:43 AM This report has been signed electronically.
--- NOTE | 2024-07-22 10:38 | PCM.POST.ANE ---
Anesthesia: Postop Eval I Current Vital Signs Temperature: 97.8 F Pulse Rate: 55 Blood Pressure: 107/50 Respiratory Rate: 16 Pulse Ox: 95 Oxygen Delivery Method: Room Air Assessment Airway patent: Yes Spontaneous unlabored respirations: Yes Mental status: Awake and Calm nausea: No Vomiting: No Anesthesia Complication: No Fluid Hydration Crystalloid volume administer (ml): 20 Total IV fluid infused: 20 Progress Note Anesthesia document: Postop Eval 1 completed: Yes
--- NOTE | 2024-07-22 10:42 | PCM.POSTANE2 ---
Anesthesia Postop Eval I Sum Postop Eval Completion status Anesthesia document: Postop Eval 1 completed: Yes Anesthesia Postop Eval I Summary Anesthesia Postop Eval I Summary: Anesthesia Postop Eval I: Assessment Summary Airway patent Yes 07/22/24 10:41 Spontaneous unlabored Yes 07/22/24 10:41 respirations Mental status Awake,Calm 07/22/24 10:41 nausea No 07/22/24 10:41 Vomiting No 07/22/24 10:41 Anesthesia Postop Eval I: Fluid Summary Crystalloid volume administer 20 07/22/24 10:42 (ml) Colloids volume administered ( ml) Blood Product volume administered (ml) Total IV fluid infused 20 07/22/24 10:42 Anesthesia Postop Eval I: Summary Notes Anesthesia Complication No 07/22/24 10:41 Anesthesia Complication Comment: Post-operative progress note Anesthesia: Postop Eval II Evaluation Mental status: Awake and Calm Pain Level: 0 nausea: No Vomiting: No Complications Anesthesia Complication: No
== END 2024-07-22 10:30 | disposition home or self-care (01) ==
LOC: EN 08:22 → AC 08:23
PROVIDERS: PCP Family Medicine; Referring Provider Family Medicine; Visit Provider Surgery
PROC: 0DJ08ZZ Inspection of Upper Intestinal Tract, Via Natural or Artificial Opening Endoscopic (ICD-10-PCS; CPT 43235; principal; 2024-07-22 09:25)
DX: K20.0 Eosinophilic esophagitis (principal); E78.00 Pure hypercholesterolemia, unspecified; Z79.899 Other long term (current) drug therapy
CPT/HCPCS: 43239; 88305; 88312; A4216